=== PATIENT | female | born 1985 | race Caucasian/White ===

== ENCOUNTER 2023-05-01 14:05 | Emergency (ER) | payer OTHER, BC ==
[2023-05-01] MEDS ORDERED: Diphtheria,Pertussis(Acell),Tetanus Vaccine 0.5 ML Syringe IM ONE (16:06)
[2023-05-01] MEDS ORDERED: Diphtheria/Tetanus Toxoids,Adult (Td) 0.5 ML SDV IM ONE (17:04)
== END 2023-05-01 16:56 | disposition home or self-care (01) ==
LOC: JP.ED 14:05
DX: S61.235A Puncture wound without foreign body of left ring finger without damage to nail, initial encounter (principal); Z23 Encounter for immunization; W46.1XXA Contact with contaminated hypodermic needle, initial encounter; Y99.0 Civilian activity done for income or pay
CPT/HCPCS: 86706; 86803; 87340; 87449; 90471; 90714; 99283-25